=== PATIENT | male | born 1990 | race Caucasian/White ===

== ENCOUNTER 2018-09-12 13:59 | Emergency (ER) | payer OTHER ==
[2018-09-12 14:24] VITALS: BMI 22.8
[2018-09-12 14:27] VITALS: BP 114/65; PULSE 76; RESP 16; TEMP 98.5; O2SAT 100
--- NOTE | 2018-09-12 14:59 | C.PDOC ---
History Of Present Illness 28 year old presents to the ED for detox from cocaine. Denies suicidal ideations, homicidal ideations, and any other associated symptoms. No other medical complaints at this time. Time Seen by Provider: 09/12/18 14:31 Chief Complaint (Nursing): Substance Abuse History Per: Patient History/Exam Limitations: no limitations Past Medical History Reviewed: Historical Data, Nursing Documentation, Vital Signs Vital Signs: Last Vital Signs Temp 98.5 F 09/12/18 14:24 Pulse 76 09/12/18 14:24 Resp 16 09/12/18 14:24 BP 114/65 09/12/18 14:24 Pulse Ox 100 09/12/18 14:24 Family History: States: Unknown Family Hx - Social History Hx Alcohol Use: Yes Hx Substance Use: Yes - Immunization History Hx Tetanus Toxoid Vaccination: No Hx Influenza Vaccination: No Hx Pneumococcal Vaccination: No Review Of Systems Constitutional: Positive for: Other (cocaine detox.) Psych: Negative for: Suicidal ideation, Other (homicidal ideations. ) Physical Exam - Physical Exam Appears: Well, Non-toxic, No Acute Distress Skin: Normal Color, Warm, Dry Head: Atraumatic, Normacephalic Eye(s): bilateral: Normal Inspection Oral Mucosa: Moist Neck: Normal ROM, Supple Cardiovascular: Rhythm Regular, No Murmur Respiratory: Normal Breath Sounds, No Rales, No Rhonchi, No Wheezing Neurological/Psych: Oriented x3, Normal Speech ED Course And Treatment O2 Sat by Pulse Oximetry: 100 (RA) Pulse Ox Interpretation: Normal Progress Note: Progress/Update: Spoke with second worker regarding patients case. grey roll worker at bedside, advised the patient to follow up as an outpatient. Patient reports no medical complaints and is stable for discharge home. Disposition - Disposition Disposition: HOME/ ROUTINE Disposition Time: 14:58 Condition: STABLE Additional Instructions: Follow up in outpatient detox as instructed. Return to ED if feel worse. 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 - Scribe Statement The provider has reviewed the documentation as recorded by the Scribe (Charleen Bloom) All medical record entries made by the Scribe were at my direction and perso sugey dictated by me. I have reviewed the chart and agree that the record accurately reflects my personal performance of the history, physical exam, medical decision making, and the department course for this patient. I have also personally directed, reviewed, and agree with the discharge instructions and disposition.
== END 2018-09-12 15:04 | disposition home or self-care (01) ==
LOC: C.ER 13:59
DX: F14.10 Cocaine abuse, uncomplicated (principal)

== ENCOUNTER 2019-03-18 10:54 | Emergency (ER) | payer OTHER ==
[2019-03-18 10:55] VITALS: BMI 22.8
[2019-03-18 11:03] VITALS: RESP 18; O2SAT 100
--- NOTE | 2019-03-18 12:33 | C.PDOC ---
History Of Present Illness 28 year old male is brought in to the ED via ambulance for questionable syncope at home. Patient reports feeling dizzy which has since resolved. Patient reports drinking 4 bottles last night. Also reports using "a lot of cocaine" daily. Patient denies nausea, vomiting, abdominal pain, chest pain, shortness of breath, fever, chills. Time Seen by Provider: 03/18/19 10:59 Chief Complaint (Nursing): Substance Abuse History Per: Patient History/Exam Limitations: no limitations Onset/Duration Of Symptoms: Hrs Current Symptoms Are (Timing): Still Present Suicide/Self Injury Attempted (Context): None Modifying Factor(s): Alcohol, Cocaine Associated Symptoms: denies: Depression, Suicidal Thoughts, Suicidal Plan Past Medical History Reviewed: Historical Data, Nursing Documentation, Vital Signs Vital Signs: Last Vital Signs Temp 98.5 F 03/18/19 10:59 Pulse 99 H 03/18/19 10:59 Resp 18 03/18/19 10:59 BP 96/51 L 03/18/19 10:59 Pulse Ox 100 03/18/19 10:59 Primary Care Provider: FAMILY PROVIDER,NO - Medical History PMH: No Chronic Diseases Surgical History: No Surg Hx Family History: States: No Known Family Hx - Social History Hx Alcohol Use: Yes Hx Substance Use: Yes - Immunization History Hx Tetanus Toxoid Vaccination: No Hx Influenza Vaccination: No Hx Pneumococcal Vaccination: No Review Of Systems Except As Marked, All Systems Reviewed And Found Negative. Constitutional: Negative for: Fever, Chills Cardiovascular: Negative for: Chest Pain Respiratory: Negative for: Cough, Shortness of Breath Gastrointestinal: Negative for: Nausea, Vomiting, Abdominal Pain, Diarrhea Neurological: Positive for: Dizziness Physical Exam - Physical Exam Appears: Non-toxic, No Acute Distress Skin: Normal Color, Warm, Dry Head: Atraumatic, Normacephalic Eye(s): bilateral: Normal Inspection, PERRL, EOMI Nose: Normal Oral Mucosa: Moist Neck: Normal, Supple Chest: Symmetrical, No Tenderness Cardiovascular: Rhythm Regular, No Murmur Respiratory: Normal Breath Sounds Gastrointestinal/Abdominal: Soft, No Tenderness, No Guarding, No Rebound Extremity: Other (abrasion to right posterior shoulder) Neurological/Psych: Oriented x3, Normal Speech, Normal Cognition ED Course And Treatment O2 Sat by Pulse Oximetry: 100 (RA) Pulse Ox Interpretation: Normal Medical Decision Making Medical Decision Making: On re-exam, the patient reports improvement of symptoms. Lungs are CTA, heart is RRR, abdomen is soft, non-tender and tolerating PO well. Follow up with the medical doctor within 1-2 days. Return if worsened. Disposition - Disposition Referrals: [facility] [Outside] Disposition: HOME/ ROUTINE Disposition Time: 13:00 Condition: IMPROVED Additional Instructions: Stop using drugs. Follow up with the medical doctor/clinic within 1-2 days. Return if worsened. Instructions: Drug Abuse and Drug Addiction (DC) Forms: [employer] (Georgian) - Clinical Impression Clinical Impression: Drug abuse - PA / DIRECTOR TOXICOLOGY / Resident Statement MD/DO has reviewed & agrees with the documentation as recorded. - Scribe Statement The provider has reviewed the documentation as recorded by the Scribe (Yobany Shelton) All medical record entries made by the Scribe were at my direction and personally dictated by me. I have reviewed the chart and agree that the record accurately reflects my personal performance of the history, physical exam, medical decision making, and the department course for this patient. I have also personally directed, reviewed, and agree with the discharge instructions and disposition.
[2019-03-18 13:33] VITALS: BP 100/60; PULSE 90; TEMP 98.4
== END 2019-03-18 13:33 | disposition home or self-care (01) ==
LOC: C.ER 10:54
DX: F19.10 Other psychoactive substance abuse, uncomplicated (principal)